=== PATIENT | male | born 2000 | race Caucasian/White ===

== ENCOUNTER 2020-10-17 08:09 | Outpatient (CLI) | payer OTHER ==
--- NOTE | 2020-10-17 08:28 | RAD ---
Chest 2 views HISTORY: Dyspnea. COMPARISON: 07/01/2020. FINDINGS: Cardiac silhouette and pulmonary vasculature are unremarkable. Mediastinum is midline. No confluent airspace consolidation, pneumothorax, or pleural fluid. IMPRESSION : No abnormalities are demonstrated.
== END 2020-10-17 08:10 | disposition home or self-care (01) ==
LOC: BICRAD 08:09
PROVIDERS: ATTEND Internal Medicine Critical Care Medicine
DX: R06.00 Dyspnea, unspecified (principal)
CPT/HCPCS: 71046